=== PATIENT | female | born 1935 | race African-American/Black ===

== ENCOUNTER 2017-06-03 18:09 | Emergency (ER) | payer BC, OTHER ==
[~2017-06-03] VITALS: Ht 162.6 cm; Wt 80.0 kg
[2017-06-03] MEDS ORDERED: LOSA25TA12 PO (18:13)
[2017-06-03] MEDS ORDERED: AMLO2.5T45 PO (18:13)
[2017-06-03] MEDS ORDERED: ATEN-42 PO (18:13)
[2017-06-03] MEDS ORDERED: KETOROLAC 30MG/ML VIAL IV STA (18:21)
[2017-06-03] MEDS ORDERED: ONDANSETRON HCL 4MG/2ML VIAL IV ONE (18:30)
[2017-06-03 19:48] LABS: BASOPHILS % 0.8 % (0.0-2.0); HEMATOCRIT. 38.1 % (36.0-48.0); HEMOGLOBIN. 12.7 g/dL (12.0-16.0); LYMPHOCYTES % 29.1 % (20.0-50.0); MEAN CORPUSCULAR HEMOGLOBIN 28.6 pg (28.0-32.0); MEAN CORPUSCULAR VOLUME 86.1 fL (81.0-99.0); MEAN PLATELET VOLUME 9.3 fl (7.4-10.4); MONOCYTES % 7.7 % (2.0-8.0); NEUTROPHILS % 59.4 % (40.0-76.0); PLATELET 169 x1000/uL (130-400); RED BLOOD CELL COUNT 4.42 mill/uL (4.2-5.4); RED CELL DISTRIBUTION WIDTH 14.3 % (11.6-14.6)
[2017-06-03 19:54] LABS: CARBON DIOXIDE 27 mEq/L (21-32); CHLORIDE 102 mEq/L (98-107)
[2017-06-03] MEDS ORDERED: CLONIDINE 0.1MG TABLET PO ONE (20:00)
[2017-06-03] MEDS ORDERED: IBUPROFEN 600MG TABLET PO ONE (20:00)
[2017-06-03 20:23] LABS: PROTHROMBIN TIME 10.7 sec
[2017-06-03 22:56] VITALS: BP 138/64
== END 2017-06-03 23:04 | disposition short-term general hospital (02) ==
LOC: ER 18:24
DX: G93.40 Encephalopathy, unspecified (principal); I10 Essential (primary) hypertension; Z88.0 Allergy status to penicillin
CPT/HCPCS: 36415; 70450; 71010; 80053; 85025; 85610; 93005; 96374; 96375; 99285; J1885; J2405

== ENCOUNTER 2017-10-11 00:02 | Emergency (ER) | payer OTHER ==
[~2017-10-11] VITALS: Ht 160 cm; Wt 73.0 kg
[~2017-10-11 00:02] MED LIST: AMLO2.5T45 PO; ATEN-42 PO; LOSA25TA12 PO
[2017-10-11] MEDS ORDERED: ASPIRIN 81MG TABLET PO ONE (00:45)
[2017-10-11] MEDS ORDERED: KETOROLAC 60MG/2ML VIAL IM ONE (00:45)
[2017-10-11 00:59] LABS: BASOPHILS % 0.3 % (0.0-2.0); EOSINOPHILS % 0.8 % (0.0-5.0); HEMATOCRIT. 39.5 % (36.0-48.0); HEMOGLOBIN. 13.4 g/dL (12.0-16.0); LYMPHOCYTES % 9.2 % (20.0-50.0); MEAN CORPUSCULAR HEMOGLOBIN 29.5 pg (28.0-32.0); MEAN CORPUSCULAR VOLUME 87.1 fL (81.0-99.0); MEAN PLATELET VOLUME 8.5 fl (7.4-10.4); MONOCYTES % 4.5 % (2.0-8.0); NEUTROPHILS % 85.2 % (40.0-76.0); PLATELET 166 x1000/uL (130-400); RED BLOOD CELL COUNT 4.53 mill/uL (4.2-5.4); RED CELL DISTRIBUTION WIDTH 14.1 % (11.6-14.6)
[2017-10-11] MEDS ORDERED: KETOROLAC 15MG/ML VIAL IV ONE (01:00)
[2017-10-11 01:07] LABS: INR 1.1; PARTIAL THROMBOPLASTIN TIME 25.7 sec (23.4-31.0); PROTHROMBIN TIME 11.3 sec (9.4-11.6)
[2017-10-11 01:10] LABS: CARBON DIOXIDE 27 mEq/L (21-32); CHLORIDE 96 mEq/L (98-107); TROPONIN I < 0.02 ng/mL (0.00-0.04)
[2017-10-11] MEDS ORDERED: VISCOUS LIDOCAINE 2% 15 ML UDC PO STA (02:28)
[2017-10-11] MEDS ORDERED: MAGNESIUM/ALUMINUM HYDROXIDE/SIMETHICONE 30ML UDC PO STA (02:28)
[2017-10-11] MEDS ORDERED: ATENOLOL 25MG TABLET PO ONE (05:30)
[2017-10-11] MEDS ORDERED: AMLODIPINE 2.5MG TABLET PO ONE (05:30)
[2017-10-11 07:06] VITALS: BP 168/75
== END 2017-10-11 07:15 | disposition home or self-care (01) ==
LOC: ER 00:02 → CANBEDREQ 07:03 → ER 07:15
DX: R51 Headache (principal); R11.2 Nausea with vomiting, unspecified; I10 Essential (primary) hypertension; Z88.0 Allergy status to penicillin
CPT/HCPCS: 36415; 71010; 74176; 80053; 83605; 83690; 83880; 84484; 85025; 85610; 85730; 93005; 96374; 99285; J1885